=== PATIENT | female | born 1965 | race Caucasian/White ===

== ENCOUNTER 2016-11-03 19:23 | Emergency (ER) | payer OTHER ==
[~2016-11-03] VITALS: Ht 170.2 cm; Wt 97.9 kg
[~2016-11-03 19:23] MED LIST: ASAC800T PO; CYCL-36 PO; CYMB30CA PO; ESTR1TAB12 PO; GABA100C2 PO; IBUP800T23 PO; PANT20 PO; PREG25 PO; SERT100 PO; TOPA25TA8 PO; TRAM50 PO; VERA120T3 PO
[2016-11-03 19:27] VITALS: BP 164/100; PULSE 72; RESP 16; TEMP 98.1; O2SAT 98
[2016-11-03] MEDS ORDERED: METOCLOPRAMIDE INJ 10 MG in SODIUM CHLORIDE 0.9% INJ 50 ML IV ONE (21:15)
[2016-11-03] MEDS ORDERED: SODIUM CHLOR 0.9% 1000 ML INJ 1,000 ML IV ONE (21:15)
[2016-11-03] MEDS ORDERED: ESTR1 PO (21:23)
[2016-11-03] MEDS ORDERED: ASAC800T PO (21:23)
[2016-11-03] MEDS ORDERED: PANT20 PO (21:23)
[2016-11-03] MEDS ORDERED: VERA120T3 PO (21:23)
--- NOTE | 2016-11-03 21:39 | PD ---
HPI Chief Complaint: Headache Time Seen by Provider: 21:03 Travel History International Travel<30 days: No Contact w/Intl Traveler<30days: No Traveled to known affect area: No History of Present Illness HPI 51yo F with PMH of migraine headache and HTN presents to the ED with c/o headache since yesterday. It is from occiput to the mid parietal region and has bilateral trapezius pain. Intermittent blurry vision that has now resolved. Denies any fever, focal weakness or numbness. Pt also with elevated blood pressure. States she is compliant with her verapamil. Denies any trauma , photophobia, chest pain, sob, n/v, abdominal pain. PFSH Past Medical History Asthma: Yes Depression: Yes Diminished Hearing: No Fibromyalgia: Yes Gastrointestinal Disorders: Yes Hypertension: Yes Immunizations Current: Yes Migraines: Yes Ulcer: Yes (crohns) Tetanus Vaccination: Unknown Influenza Vaccination: Yes ?: Not : 3 Para: 3 Past Surgical History Cardiac Surgery: Yes Section: Yes Hysterectomy: Yes Social History Alcohol Use: No Tobacco Use: No Substance Use: No Allergies-Medications (Allergen,Severity, Reaction): Coded Allergies: Penicillin (Verified Allergy, Mild, Hives, 11/03/16) Reported Meds & Prescriptions Reported Meds & Active Scripts Active Reported Asacol HD (Mesalamine) 800 Mg Tab 1,600 Mg PO TID Swallow whole. Take on an empty stomach. Verapamil (Verapamil HCl) 120 Mg Tab 120 Mg PO BID Protonix (Pantoprazole Sodium) 20 Mg Tab 20 Mg PO DAILY Estrace (Estradiol) 1 Mg Tab 1 Mg PO DAILY Review of Systems Except as stated in HPI: all other systems reviewed are Neg Physical Exam Narrative GENERAL: 51yo F not in distress. SKIN: Warm and dry. HEAD: Atraumatic. Normocephalic. EYES: Pupils equal and round. No scleral icterus. No injection or drainage. ENT: No nasal bleeding or discharge. Mucous membranes pink and moist. NECK: Trachea midline. No JVD. CARDIOVASCULAR: Regular rate and rhythm. No murmur appreciated. RESPIRATORY: No accessory muscle use. Clear to auscultation. Breath sounds equal bilaterally. GASTROINTESTINAL: Abdomen soft, non-tender, nondistended. Hepatic and splenic margins not palpable. MUSCULOSKELETAL: No obvious deformities. No clubbing. No cyanosis. No edema. NEUROLOGICAL: Awake and alert. No obvious cranial nerve deficits. Motor grossly within normal limits. Normal speech. PSYCHIATRIC: Appropriate mood and affect; insight and judgment normal. Data Data Last Documented VS Vital Signs Date Time Temp Pulse Resp B/P Pulse Ox O2 Delivery O2 Flow Rate FiO2 11/03/16 21:17 18 99 Room Air 11/03/16 19:27 98.1 72 164/[address] Brain W/O Iv Contrast(Rout) (11/03/16 ) Metoclopramide Inj (Reglan Inj) (11/03/16 21:15) Sodium Chlor 0.9% 1000 Ml Inj (Ns 1000 M (11/03/16 21:15) Hydralazine Inj (Apresoline Inj) (11/03/16 22:00) Ketorolac Inj (Toradol Inj) (11/03/16 22:30) Acetaminophen (Tylenol) (11/03/16 23:00) MDM Medical Decision Making Medical Screen Exam Complete: Yes Emergency Medical Condition: Yes Differential Diagnosis Tension headache vs. migraine headache vs. Hypertensive bleed Narrative Course 51yo F with tension type headache. No focal neurologic deficits. Pt is well appearing. Pt's blood pressure is very elevated so will treat with hydralazine 10mg IV and do CT brain. CT brain showed no acute intracranial findings. Pt given reglan, IVF, toradol and acetaminophen for her headache. Pt reevaluated at bedside and headache has resolved. Return precautions given. Diagnosis Primary Impression: Headache Qualified Code: R51 - Acute nonintractable headache, unspecified headache type Patient Instructions: General Instructions Departure Forms: Tests/Procedures Additional Instructions: Please follow up with your PMD in 3-7 days. Return to the ED if symptoms worsen. Med/Other Pt SpecificInfo: Prescription(s) given Scripts Ibuprofen 600 Mg Tql106 Mg PO Q8HR PRN (PAIN) #20 TAB Ref 0 Prov:Jacquelyn Zee 11/03/16 Disposition: 01 DISCHARGE HOME Condition: Stable Jacquelyn Zee Nov 03, 2016 21:39
[2016-11-03] MEDS ORDERED: hydrALAZINE HCL 20 MG/ML VIAL IV PUSH ONE (22:00)
--- NOTE | 2016-11-03 22:01 | RADHPO ---
EXAM DATE/TIME: 11/03/2016 21:24 [facility] COMPARISON: No previous studies available for comparison. INDICATIONS : Cephalgia. Hypertension. RADIATION DOSE: 62.51 CTDIvol (mGy) MEDICAL HISTORY : Hypertension. Crohns disease. SURGICAL HISTORY : Hysterectomy. section. ENCOUNTER: Initial ACUITY: 1 day PAIN SCALE: 5/10 LOCATION: Bilateral cranial TECHNIQUE: Multiple contiguous axial images were obtained of the head. Using automated exposure control and adj ustment of the mA and/or kV according to patient size, radiation dose was kept as low as reasonably a chievable to obtain optimal diagnostic quality images. FINDINGS: There is moderate asymmetry of the lateral ventricles, likely on a developmental basis. There is no e vidence of intracranial mass or hemorrhage. There is nothing to suggest acute infarction. There is mi ld mucosal sinus disease present. CONCLUSION: No acute intracranial findings Curt Fontana MD on November 03, 2016 at 21:58 Board Certified Radiologist. This report was verified electronically.
[2016-11-03] MEDS ORDERED: KETOROLAC TROMETHAMINE 30 MG/ML (IVP) VIAL IV PUSH ONE (22:30)
[2016-11-03] MEDS ORDERED: ACETAMINOPHEN 325 MG TAB PO ONE (23:00)
[2016-11-03] MEDS ORDERED: IBUP-232 PO (23:06)
[2016-11-03 23:12] VITALS: RESP 18
[2016-11-03 23:15] VITALS: BP 153/87
== END 2016-11-03 23:23 | disposition home or self-care (01) ==
LOC: PHED 19:23 → PHEFT 23:23
DX: R51 Headache (principal); I10 Essential (primary) hypertension
CPT/HCPCS: 70450; 96365; 96375; 99284; J0360; J1885; J2765; J7030